=== PATIENT | male | born 1945 | race Caucasian/White ===

== ENCOUNTER 2017-06-04 08:01 | Day surgery (SDC) | payer BC ==
[2017-06-04] MEDS ORDERED: MEPERIDINE HCL/PF 100 MG/ML AMP ONE (08:26)
[2017-06-04] MEDS ORDERED: MIDAZOLAM HCL 5 MG/5 ML VIAL ONE (08:27)
[2017-06-04] MEDS: MIDAZOLAM HCL 5 MG/5 ML VIAL ONE ×4 (10:16→10:24)
[2017-06-04 14:07] VITALS: BP_SYST 136
== END 2017-06-04 11:25 | disposition home or self-care (01) ==
LOC: SDS 08:01 → SMU 08:33 → SDS 11:25
PROVIDERS: ATTEND Internal Medicine Gastroenterology
DX: Z09 Encounter for follow-up examination after completed treatment for conditions other than malignant neoplasm (principal); Z86.010 Personal history of colon polyps; K57.30 Diverticulosis of large intestine without perforation or abscess without bleeding; K64.8 Other hemorrhoids; I10 Essential (primary) hypertension; Z98.890 Other specified postprocedural states; Z68.30 Body mass index [BMI] 30.0-30.9, adult
CPT/HCPCS: 45378; J2175; J2250